=== PATIENT | male | born 1975 | race Caucasian/White ===

== ENCOUNTER 2022-10-26 16:37 | Emergency (ER) | payer OTHER, SELFPAY ==
--- NOTE | 2022-10-26 16:38 | ED.URI ---
HPI - URI/Sore Throat General Chief Complaint: Upper Respiratory Infection Stated Complaint: Headache/Sinus Time Seen by Provider: 10/26/22 16:37 Source: patient Mode of arrival: ambulatory Limitations: no limitations History of Present Illness HPI Narrative: Mr. Franco is a 46-year-old male patient presenting to the clinic today with complaints of headache and sinus drainage/pressure times 11 days. He reports symptoms just started out as a cold however he has a lot of pressure and pain over his right maxilla MD elicited complaint: sore throat and nasal congestion Related Data Home Medications Medication Instructions Recorded Confirmed fenofibrate nanocrystallized 145 mg PO 10/26/22 mg tablet lisinopril 20 tablet 10/26/22 mg-hydrochlorothiazide 12.5 mg tablet simvastatin 20 mg tablet mg 10/26/22 Allergies Allergy/AdvReac Type Severity Reaction Status Date / Time No Known Allergies Allergy Unverified 10/26/22 16:47 Review of Systems Review of Systems: Pertinent positives per HPI. Patient denies any fever, chills, rash, visual changes, dizziness, shortness of breath, chest pain, palpitations, nausea, vomiting, diarrhea, constipation, abdominal pain, or any urinary issues. PMFSH Comments At the time of my signature, I reviewed and agree with the nursing past medical, surgical, social, and family history. There is no relevant family history pertinent to the patient complaint. Exam Narrative: General: Well-developed, well nourished, in no apparent distress Head: Normocephalic, atraumatic Eyes: Pupils equally round and reactive to light bilaterally, EOM intact, sclera and conjunctive clear, no discharge, lids normal Ears: TMs intact and clear, ear canals clear, no drainage, grossly hearing normal. Nose: Nares patent, green nasal discharge, severe inflammation, right-sided maxillary sinus tenderness. Mouth: Oral pharynx without lesions or masses, good dentition, MMM. Postnasal drip Neck: Supple, trachea midline, no enlargement of anterior or posterior cervical nodes, no thyroid masses or goiter palpable. Cardio: Regular rate and rhythm, s1 and s2 normal, no murmur appreciated. Resp: Clear to auscultation bilaterally, no rhonchi, rales, wheezing or rubs Course Course Emergency Course: Portions of this record may have been created with voice recognition software. Level of Care: Express Care Visit Vital Signs Vital signs: Vital Signs Temperature 36.8 C 10/26/22 16:48 Pulse Rate 69 10/26/22 16:48 Respiratory Rate 16 10/26/22 16:48 Blood Pressure 148/76 H 10/26/22 16:48 Pulse Oximetry 100 10/26/22 16:48 Oxygen Delivery Room Air 10/26/22 16:48 Temperature 36.8 C 10/26/22 16:48 Pulse Rate 69 10/26/22 16:48 Respiratory Rate 16 10/26/22 16:48 Blood Pressure 148/76 H 10/26/22 16:48 Pulse Oximetry 100 10/26/22 16:48 Oxygen Delivery Room Air 10/26/22 16:48 Vital signs reviewed MDM - URI/Sore Throat MDM Narrative Medical decision making narrative: At the time of visit patient is resting comfortably on the exam table. I suspect patient has acute bacterial rhinosinusitis. Prescription for Augmentin and prednisone was sent to the pharmacy and supportive measures were discussed with the patient he voiced understanding discharge instructions and agrees to treatment plan. Differential Diagnosis Differential diagnosis: Likely upper respiratory infection, otitis media, sinusitis, viral infection, bronchitis, influenza, pharyngitis and other (COVID) Discharge Plan Discharge Clinical Impression: Acute bacterial rhinosinusitis Patient Disposition: Home, Self-Care Condition: Stable Instructions: Antibiotic Form, Rhinosinusitis (ED) Additional Instructions: Take prescription medications only as prescribed-Augmentin and prednisone Increase fluids and stay well hydrated Tylenol/motrin for pain/fever Flonase and OTC antihistamines as directed V
[2022-10-26 16:48] VITALS: BP 148/76; PULSE 69; RESP 16; TEMP 36.8; O2SAT 100
== END 2022-10-26 16:55 | disposition home or self-care (01) ==
LOC: EXPCOLL 16:42
PROVIDERS: Emergency Provider Nurse Practitioner Family; PCP Family Medicine Sports Medicine
DX: J01.90 Acute sinusitis, unspecified (principal); E78.00 Pure hypercholesterolemia, unspecified; I10 Essential (primary) hypertension; G47.30 Sleep apnea, unspecified
CPT/HCPCS: 99213; G0463